=== PATIENT | male | born 1935 | race Caucasian/White ===

== ENCOUNTER 2022-04-18 12:27 | Emergency (ER) | payer OTHER ==
[~2022-04-18] VITALS: Ht 182.9 cm; Wt 95.2 kg
[~2022-04-18 12:27] MED LIST: ATOR40TA PO; BETA.1TL TOP; CALCPOTTC TOP; DIPH50 PO; FAMO20 PO; HYDACE10B PO; LUBRICANT 0.5-015 ML OP; METO50 PO; PANT40 PO; Prednisone10 M1 PO; ZESTORETIC 20-121 E1 PO
[2022-04-18 13:27] LABS: BASOPHILS ABSOLUTE AUTO 0.03 K/mm3 (0.00-0.23); BASOPHILS PERCENT AUTO 0 % (0-2); EOSINOPHILS ABSOLUTE AUTO 0.19 K/mm3 (0.00-0.68); EOSINOPHILS PERCENT AUTO 3 % (0-6); Hematocrit 37.9 % (37.0-53.0); Hemoglobin 12.3 g/dL (13.5-17.5); IMMATURE GRAN ABSOLUTE AUTO 0.02 K/mm3 (0.00-0.10); IMMATURE GRAN PERCENT AUTO 0 % (0-1); LYMPHOCYTES ABSOLUTE AUTO 1.06 K/mm3 (0.84-5.20); LYMPHOCYTES PERCENT AUTO 15 % (21-46); MONOCYTES ABSOLUTE AUTO 0.67 K/mm3 (0.16-1.47); MONOCYTES PERCENT AUTO 9 % (4-13); Mean Corpuscular HGB 30.8 pg (26.0-34.0); Mean Corpuscular HGB Conc 32.5 g/dL (31.5-36.5); Mean Corpuscular Volume 95 fL (80-100); Mean Platelet Volume 10.5 fL (9.1-12.4); NEUTROPHILS ABSOLUTE AUTO 5.12 K/mm3 (1.96-9.15); NEUTROPHILS PERCENT AUTO 72 % (41-73); Platelet Count 182 K/mm3 (150-400); RDW Coefficient Variation 14.6 % (11.7-14.2); RDW Standard Deviation 50.7 fL (35.1-46.3); White Blood Cell Count 7.09 K/mm3 (4.00-11.30)
[2022-04-18 13:39] LABS: Albumin, Blood 3.8 g/dL (3.4-5.0); Albumin/Globulin Ratio 1.2 (0.8-1.8); Bilirubin, Total 1.9 mg/dL (0.1-1.0); Bun/Creatinine Ratio 31.1 (12.0-20.0); Calcium, Blood 9.4 mg/dL (8.5-10.1); Creatinine, Blood 1.22 mg/dL (0.60-1.20); Globulin, Blood 3.3 g/dL (2.2-4.0); Magnesium, Blood 2.4 mg/dL (1.6-2.4); Potassium, Blood 4.4 mmol/L (3.5-5.5); Total Protein, Blood 7.1 g/dL (6.4-8.2)
[2022-04-18] MEDS ORDERED: ALBU90OI INH (13:44)
[2022-04-18] MEDS ORDERED: ELIQUIS5 M2 PO (13:44)
[2022-04-18] MEDS ORDERED: Betamethasone D60 ML TOP (13:44)
[2022-04-18] MEDS ORDERED: LACT (13:45)
[2022-04-18] MEDS ORDERED: Lipitor20 MG PO (13:45)
[2022-04-18] MEDS ORDERED: LOSA50 PO (13:45)
[2022-04-18] MEDS ORDERED: GABA300 PO (13:45)
[2022-04-18] MEDS ORDERED: METO100ER PO (13:46)
[2022-04-18] MEDS ORDERED: MAGNESIUM OXID500 MG PO (13:46)
[2022-04-18] MEDS ORDERED: Flomax0.4 MG PO (13:47)
[2022-04-18] MEDS ORDERED: KLOR-CON 1010 ME3 PO (13:47)
[2022-04-18] MEDS ORDERED: AMOCLA875 PO (14:31)
== END 2022-04-18 15:07 | disposition home or self-care (01) ==
LOC: ER 12:27
PROVIDERS: Emergency Medicine
DX: I11.0 Hypertensive heart disease with heart failure (principal); I50.9 Heart failure, unspecified; J18.9 Pneumonia, unspecified organism; I25.10 Atherosclerotic heart disease of native coronary artery without angina pectoris; I48.0 Paroxysmal atrial fibrillation; E78.5 Hyperlipidemia, unspecified; Z88.8 Allergy status to other drugs, medicaments and biological substances; Z79.899 Other long term (current) drug therapy; Z79.01 Long term (current) use of anticoagulants
CPT/HCPCS: 36415; 71045; 80053; 83735; 83880; 84484; 85025; 93005; 93010